=== PATIENT | female | born 1970 | race Caucasian/White ===

== ENCOUNTER 2016-12-14 07:02 | Emergency (ER) | payer OTHER ==
[2016-12-14 07:17] VITALS: BP 154/84; PULSE 79; RESP 16; TEMP 97.5; O2SAT 96
--- NOTE | 2016-12-14 07:49 | UCPHY ---
H & P Time Seen by Provider: 12/14/16 07:24 Patient Type: Established HPI/ROS: This patient complains of a burning discomfort in the vaginal area associated with malodor makes her suspicious of ongoing vaginosis. She explains that since mid October when she was treated with Amoxil she has developed the symptoms and was treated with Monistat followed by Flagyl for 2 weeks. She just finished Flagyl but she still has ongoing symptoms and thinks that she may still have BV. She has associated mild itching. ROS: No fevers or other constitutional symptoms. GI: No abdominal pain : No vaginal discharge. No urinary symptoms. 5 point ROS is otherwise negative Past Medical/Surgical History: 3 years status post hysterectomy. She still has ovaries Smoking Status: Never smoked Physical Exam: General Appearance: Pleasant mildly obese 46-year-old female. Alert, no distress. Respiratory: No respiratory distress Cardiovascular: Capillary refill intact Gastrointestinal: Abdomen is soft and nontender, no masses, no pelvic tenderness. : External genitalia normal with no lesions. No vaginal discharge. On speculum exam the cervix is difficult to visualize due to redundant tissue and body habitus. There is small amount of white discharge. Swab obtained and sent for culture and PCR Neurological: Alert with no deficits Skin: Warm and dry, no rashes. Extremities are symmetrical, full range of motion. Psychiatric: Mood and affect normal DIFFERENTIAL DIAGNOSIS: After history and physical exam differential diagnosis was considered for vaginosis, mucosal changes related to potential menopause Constitutional: Initial Vital Signs Temperature (C) 36.4 C 12/14/16 07:14 Heart Rate 79 12/14/16 07:14 Respiratory Rate 16 12/14/16 07:14 Blood Pressure 154/84 H 12/14/16 07:14 O2 Sat (%) 96 12/14/16 07:14 O2 Delivery Mode Room Air Allergies/Adverse Reactions: cephalexin monohydrate [From Keflex] Allergy (Intermediate, Verified 12/14/16 07 :13) Rash erythromycin base [Erythromycin Base] Allergy (Intermediate, Verified 12/14/16 07:13) GI UPSET Home Medications: Medication Instructions Recorded NK [No Known Home Meds] 12/14/16 MDM/Departure - MDM Diagnostics: Wet mount is negative for yeast or clue cells. PCR test is pending ED Course/Re-evaluation: I counseled the patient her symptoms may be attributable to early menopausal changes as her vaginal tissue seem to be on the dry side. No concerning findings on her workup. She will follow up with OBGYN - Depart Disposition: Home, Routine, Self-Care Clinical Impression: Vaginal discomfort Condition: Good Additional Instructions: Diagnosis: Vaginal discomfort Your swabs today revealed no evidence under the microscope of abnormal bacteria or yeast. Plan: Call Dr. Najera, -Women's Health Specialist to arrange an appointment for further evaluation for your symptoms. Referrals: Alba Christianson MD [Primary Care Provider] - As per Instructions Rozina Najera DO [Doctor of Osteopathy] - As per Instructions - PQRS PQRS Measurement: NA
== END 2016-12-14 08:43 | disposition home or self-care (01) ==
LOC: CED 07:02
DX: N89.8 Other specified noninflammatory disorders of vagina (principal)
CPT/HCPCS: 87210-PO; 99214-PO; G0463-PO

== ENCOUNTER → 2018-02-15 | Outpatient (CLI) | payer OTHER | LOC: CIMAGING 07:14 | PROVIDERS: ATTEND Internal Medicine | DX: K82.9 Disease of gallbladder, unspecified (principal); R19.7 Diarrhea, unspecified; L98.9 Disorder of the skin and subcutaneous tissue, unspecified | CPT/HCPCS: 76700-PO ==

== ENCOUNTER → 2018-03-03 | Outpatient (CLI) | payer OTHER | LOC: FIMAGING 12:54 | PROVIDERS: ATTEND Internal Medicine | DX: R10.11 Right upper quadrant pain (principal) | CPT/HCPCS: 78227; A9537 ==